=== PATIENT | female | born 1990 | race Two or more races ===

== ENCOUNTER 2016-05-20 09:52 | Inpatient (IN) | payer OTHER ==
[~2016-05-20] VITALS: Ht 153.7 cm; Wt 72.0 kg
[2016-05-20 10:55] VITALS: Ht 153.7 cm; Wt 72.0 kg
[2016-05-20 10:57] VITALS: BP 117/66; PULSE 71; RESP 18
[2016-05-20] MEDS ORDERED: ACETAMINOPHEN/CODEINE #3 TAB PO PRN (11:00)
[2016-05-20] MEDS ORDERED: LIDOCAINE 1% (MPF) 30 ML INJ INJ PRN (11:00)
[2016-05-20] MEDS ORDERED: CARBOPROST 250 MCG INJ IM PRN (11:00)
[2016-05-20] MEDS ORDERED: METHYLERGONOVINE 0.2 MG INJ IM PRN (11:00)
[2016-05-20] MEDS ORDERED: IBUPROFEN 600 MG TAB PO PRN (11:00)
[2016-05-20] MEDS ORDERED: LACTATED RINGER'S 1,000 ML IV PRN (11:00)
[2016-05-20] MEDS ORDERED: MISOPROSTOL 200 MCG TAB PR PRN (11:00)
[2016-05-20] MEDS ORDERED: OXYTOCIN 30 UNITS/LR 500 ML IV SCH ×3 (11:00)
[2016-05-20] MEDS ORDERED: OXYTOCIN 30 UNITS/LR 500 ML IV PRN (11:00)
[2016-05-20] MEDS ORDERED: BUTORPHANOL 2 MG INJ IV PRN ×2 (11:00)
[2016-05-20 11:02] LABS: ADD SCAN DIFF NO
[2016-05-20 11:07] LABS: BASOPHILS % 0.2 % (0.0-2.0); EOSINOPHILS # 0.1 10^3/ul (0.0-0.5); EOSINOPHILS % 0.4 % (0.0-7.0); HEMATOCRIT 34.1 % (37.0-47.0); HEMOGLOBIN 11.6 g/dl (12.0-16.0); LYMPHOCYTES # 1.1 10^3/ul (0.8-2.9); LYMPHOCYTES % 9.1 % (15.0-51.0); MEAN CORPUSCULAR HEMOGLOBIN 32.6 pg (29.0-33.0); MEAN CORPUSCULAR VOLUME 95.8 fl (82.0-101.0); MEAN PLATELET VOLUME 12.3 fl (7.4-10.4); MONOCYTE # 0.8 10^3/ul (0.3-0.9); MONOCYTES % 6.4 % (0.0-11.0); NEUTROPHIL # 9.7 10^3/ul (1.6-7.5); NEUTROPHILS % 83.2 % (39.0-77.0); PLATELET COUNT 196 10^3/UL (140-415); RED BLOOD COUNT 3.56 10^6/ul (4.20-5.40); RED CELL DISTRIBUTION WIDTH 12.8 % (11.5-14.5); WHITE BLOOD COUNT 11.7 10^3/ul (4.8-10.8)
[2016-05-20 11:24] LABS: INR 0.96; PROTIME 12.8 Sec (12.2-14.2)
[2016-05-20 11:25] LABS: PARTIAL THROMBOPLASTIN TIME 27.3 Sec (25.0-35.0)
--- NOTE | 2016-05-20 11:28 | RADRPT ---
PROCEDURE: US OB biophysical profile. CLINICAL INDICATION: evaluation, contractions TECHNIQUE: Multiple sonographic images of the pelvis were obtained. The images were reviewed on a PACS workstation. COMPARISON: No prior studies are available for comparison. FINDINGS: There is a single viable intrauterine gestation. Cardiac activity is present with 134 beats per min [place]. There is a vertex presentation. The placenta is bilobed anterior and posterior. There is no evidence of placental abruption. There is a normal amount of amniotic fluid with an SURYA = 14.1 cm. Biophysical profile: movement 2/2 tone 2/2. breathing 2/2 SURYA 2/2 Total 09/30 RPTAT: AA . IMPRESSION: Normal biophysical profile. Bilobed placenta. Normal SURYA. Physician Cristina Date Time Electronically viewed and signed by Physician Cristina on 05/20/2016 11:28 /
--- NOTE | 2016-05-20 11:30 | RADRPT ---
PROCEDURE: US OB CLINICAL INDICATION: CONTRACTIONS, estimated weight TECHNIQUE: Multiple sonographic images of the pelvis were obtained. The images were reviewed on a PACS workstation. COMPARISON: None FINDINGS: The cervix is not well visualized. There is a single viable intrauterine gestation. Cardiac activity is present with 134 beats per minute. There is a vertex presentation. The placenta is bilobed anterior and posterior. There is no evidence for an abruption or placenta pr evia. There is a normal amount of amniotic fluid with an SURYA = 14.1 cm. Measurements were made in order to determine age. The results are as follows (cm): BPD =8.87 HC =31.57 AC =34.53 FL =7.02 Estimated gestational age by ultrasound of approximately 36 weeks, 3 days. The estimated date of delivery by ultrasound is 06/14/2016. Estimated gestational age by LMP of approximately 39 weeks, 0 days. The estimated date of delivery by LMP is 05/27/2016. EFW = 3151 grams (25th percentile) IMPRESSION: Single viable intrauterine gestation of approximately 36 weeks, 3 days . The estimated date of delivery is 06/14/2016 . Dating by ultrasound is within 18 days of dating by LMP. Bilobed placenta. Normal SURYA. Estimated weight is in the 25th percentile. Cephalic presentation. RPTAT: EE Physician Cristina Date Time Electronically viewed and signed by Physician Cristina on 05/20/2016 11:30 /
[2016-05-20] MEDS: LACTATED RINGER'S 1,000 ML IV SCH (12:22)
[2016-05-20] MEDS ORDERED: PRENAT PO (15:25)
[2016-05-20] MEDS ORDERED: FOLI0.4T2 PO (15:26)
[2016-05-20] MEDS ORDERED: CALC600T11 PO (15:29)
[2016-05-20] MEDS ORDERED: FERR325C PO (15:29)
[2016-05-20] MEDS ORDERED: ONDANSETRON 4 MG INJ IV PRN (21:30)
[2016-05-20] MEDS ORDERED: DIPHENHYDRAMINE 50 MG INJ IV PRN (21:30)
[2016-05-20] MEDS ORDERED: HYDROmorphONE 1 MG/ML SYG IV PRN ×2 (21:30)
[2016-05-20] MEDS ORDERED: KETOROLAC 30 MG INJ IV PRN (21:30)
[2016-05-20] MEDS ORDERED: NALOXONE (0.4 MG/ML) INJ IV PRN (21:30)
[2016-05-21] MEDS: LACTATED RINGER'S 1,000 ML IV SCH ×2 (03:20→12:50)
[2016-05-21] MEDS: FENTAnyl 2MCG/ML-ROPIV 0.2% 100 ML BAG EPI SCH ×2 (07:27→14:38)
[2016-05-21] MEDS ORDERED: AMPICILLIN 2 GM/NS (PMX) 100 ML IVPB ONE (08:30)
[2016-05-21] MEDS ORDERED: AMPICILLIN 1 GM/NS (PMX) 50 ML IVPB SCH (09:00)
[2016-05-21 09:03] LABS: BARBITURATES Negative (NEGATIVE); BENZODIAZEPINES Negative (NEGATIVE); COCAINE Negative (NEGATIVE); OPIATES Negative (NEGATIVE)
[2016-05-21 09:17] LABS: CANNABINOIDS Negative (NEGATIVE)
[2016-05-21] MEDS ORDERED: ACETAMINOPHEN 325 MG TAB PO ONE (09:30)
[2016-05-21] MEDS: AMPICILLIN 1 GM/NS (PMX) 50 ML IVPB SCH ×3 (12:51→21:00)
--- NOTE | 2016-05-21 17:03 | HP ---
Date/Time of Note Date/Time of Note DATE: 05/21/16 TIME: 17:02 OB - History Hx of Present Free Text/Dictation @39+wks GA in early labor for augmentation of labor : 1 Para: 0 Care: Good Care Ultrasounds: Normal mid trimester US Obstetrical Complications: None Medical Complications: None Past Family/Social History * Past Medical, Surgical, Family and Obstetric Histories reviewed from chart. OB Admission Exam Vital Signs Vital Signs Vital Signs Date Time Temp Pulse Resp B/P Pulse Ox O2 Delivery O2 Flow Rate FiO2 05/20/16 10:57 99.1 71 18 117/66 Room Air Physical Exam Heart: Rhythm Normal Abdomen: WNL Extremities: Normal Cervical Dilatation: 2cm Effacement: 75% Station: -1 Membranes: Intact Heart Rate: 150's Accelerations: Accelerations Present Decelerations: No Decelerations Varibility: Moderate Contractions on Admission: < 5 Minutes Apart Last 72 hours Lab Results CBC & BMP 05/20/16 10:30 OB Assessment/Plan Reason for admission: observation Induction Method: per Pitocin Protocol CHRISTOPHER ALEXANDRA M.D. May 21, 2016 17:03
[2016-05-21] MEDS: CEFAZOLIN 2 GM/50 ML (PMX) 50 ML IVPB SCH (19:56)
[2016-05-21] MEDS ORDERED: ACETAMINOPHEN 325 MG TAB PO PRN (20:00)
[2016-05-21 22:00] VITALS: BP 112/75; PULSE 98; RESP 20
[2016-05-21] MEDS ORDERED: BENZOCAINE 20% 56 ML SPRAY TOP PRN (22:30)
[2016-05-21] MEDS ORDERED: WITCH HAZEL/GLYCERIN PAD PR PRN (22:30)
[2016-05-21] MEDS ORDERED: ZOLPIDEM 5 MG TAB PO PRN (22:30)
[2016-05-21] MEDS ORDERED: MISOPROSTOL 200 MCG TAB PR PRN (22:30)
[2016-05-21] MEDS ORDERED: CARBOPROST 250 MCG INJ IM PRN (22:30)
[2016-05-21] MEDS ORDERED: SENNA/DOCUSATE NA (8.6MG/50MG) TAB PO PRN (22:30)
[2016-05-21] MEDS ORDERED: OXYTOCIN 30 UNITS/LR 500 ML IV PRN (22:30)
[2016-05-21] MEDS ORDERED: METHYLERGONOVINE 0.2 MG INJ IM PRN (22:30)
[2016-05-21] MEDS ORDERED: LANOLIN 7 GM TUBE TOP PRN (22:30)
[2016-05-21] MEDS: LACTATED RINGER'S 1,000 ML IV* SCH (22:42)
[2016-05-21 23:50] VITALS: BP 103/60; PULSE 93; RESP 19
[2016-05-22 04:00] VITALS: BP 100/59; PULSE 89; RESP 19
[2016-05-22] MEDS: CEFAZOLIN 2 GM/50 ML (PMX) 50 ML IVPB SCH ×3 (04:00→22:46)
[2016-05-22] MEDS: IBUPROFEN 600 MG TAB PO SCH ×4 (05:25→17:34)
[2016-05-22] MEDS: LACTATED RINGER'S 1,000 ML IV* SCH ×3 (06:10→22:46)
[2016-05-22 08:06] LABS: ADD SCAN DIFF NO
[2016-05-22 08:07] LABS: ABNORMAL IP MESSAGE 1; HEMATOCRIT 25.5 % (37.0-47.0); HEMOGLOBIN 8.4 g/dl (12.0-16.0); MEAN CORPUSCULAR HEMOGLOBIN 31.9 pg (29.0-33.0); MEAN CORPUSCULAR HGB CONC 32.9 g/dl (32.0-37.0); PLATELET COUNT 156 10^3/UL (140-415); RED BLOOD COUNT 2.63 10^6/ul (4.20-5.40); RED CELL DISTRIBUTION WIDTH 13.2 % (11.5-14.5); WHITE BLOOD COUNT 26.9 10^3/ul (4.8-10.8)
[2016-05-22 09:00] VITALS: BP 94/52; PULSE 87; RESP 20
[2016-05-22] MEDS: MAGNESIUM HYDROXIDE 30ML CUP PO SCH ×2 (09:08→21:00)
[2016-05-22] MEDS: SENNA/DOCUSATE NA (8.6MG/50MG) TAB PO SCH ×2 (09:09→21:00)
[2016-05-22 09:36] LABS: EOSINOPHILS # 0.3 10^3/ul (0.0-0.5); LYMPHOCYTES # 1.3 10^3/ul (0.8-2.9); MONOCYTE # 1.3 10^3/ul (0.3-0.9); NEUTROPHIL # 19.9 10^3/ul (1.6-7.5)
[2016-05-22 12:04] VITALS: BP 86/45; PULSE 86; RESP 16
[2016-05-22] MEDS: OXYCODONE/ASPIRIN (4.88/325) TAB PO PRN ×2 (14:06→22:50)
[2016-05-22 16:00] VITALS: BP 82/55; PULSE 78; RESP 18
[2016-05-22 20:00] VITALS: BP 99/57; PULSE 85; RESP 19
--- NOTE | 2016-05-22 21:02 | QN ---
Documentation Comment PPD# 1 is stable afebrile tolerates diet No VB +BM +Voids VS stable Gen NAD Abd soft NT ND Genitalia No blood at perinium ---->discharge plan tomorrow CHRISTOPHER ALEXANDRA M.D. May 22, 2016 21:02
[2016-05-23 04:37] VITALS: BP 97/54; PULSE 83; RESP 19
[2016-05-23] MEDS: LACTATED RINGER'S 1,000 ML IV* SCH (06:10)
[2016-05-23] MEDS: IBUPROFEN 600 MG TAB PO SCH ×3 (06:56→11:56)
[2016-05-23] MEDS: CEFAZOLIN 2 GM/50 ML (PMX) 50 ML IVPB SCH (06:56)
[2016-05-23 08:00] VITALS: BP 98/48; PULSE 75; RESP 20
[2016-05-23] MEDS ORDERED: DIPHTH/TET/ACEL PERTUSS (ADULT) 0.5 ML VIAL IM* ONE (09:00)
[2016-05-23] MEDS: SENNA/DOCUSATE NA (8.6MG/50MG) TAB PO SCH (09:07)
[2016-05-23] MEDS: MAGNESIUM HYDROXIDE 30ML CUP PO SCH (09:07)
--- NOTE | 2016-05-23 12:20 | DS ---
Date/Time of Note Date/Time of Note DATE: 05/23/16 TIME: 12:19 Discharge Summary Admission/Discharge Info Admit Date/Time May 20, 2016 at 09:52 Discharge Date/Time 05/23/16 Final Diagnosis labor full term Patient Condition: Stable Procedures vaginal delivery Hospital Course uneventful Home Meds Discontinued Reported Medications Calcium Carbonate* (Calcium Carbonate*) 600 MG Ca Tab, 600 MG PO, TAB 05/20/16 Ferrous Sulfate (Iron) 325 Mg Capsule.er, 325 MG PO, CAP 05/20/16 Folic Acid* (Folic Acid*) 0.4 Mg Tablet, 0.4 MG PO DAILY, TAB 05/20/16 Multivit/Min/Fol Ac/Iron/Pren* ( S*) 1 Tab Tab, 1 TAB PO DAILY, TAB 05/20/16 CHRISTOPHER ALEXANDRA M.D. May 23, 2016 12:20
--- NOTE | 2016-06-11 23:48 | LDN ---
Date/Time of Note Date/Time of Note DATE: 06/11/16 TIME: 23:47 Delivery Summary Weeks of Gestation 39 weeks Placenta Delivered: Spontaneously Anesthesia type: Epidural Estimated blood loss: 200 Sponge & Needle done & correct: Yes All needle counts correct: Yes Any foreign bodies felt in the: No Problems: Infant Delivery Information Suctioning Nose & mouth suctioned at jo ann: Yes Delee suction performed: Yes Umbilical Cord Umbilical cord with: 3 Vessels Cord presentations: no nuchal cord Cord Blood was obtained: Yes Mother & Baby Disposition Disposition Mom & Baby to Maternity; Good: Yes Baby to NICU: No CHRISTOPHER ALEXANDRA M.D. Jun 11, 2016 23:48
== END 2016-05-23 13:40 | disposition home or self-care (01) | DRG 775 ==
LOC: L-D 09:52 → PP1 05-21 21:39
PROVIDERS: ADMIT Obstetrics & Gynecology; ATTEND Obstetrics & Gynecology
PROC: 10E0XZZ Delivery of Products of Conception, External Approach (ICD-10-PCS; principal; 2016-05-20)
DX: O80 Encounter for full-term uncomplicated delivery (principal); Z37.0 Single live birth; Z3A.39 39 weeks gestation of pregnancy
CPT/HCPCS: 62319; 76815; 76818; 80307; 85025; 85610; 85730; 86592; 86900; 86901; 87340; 88307; 90715; 99464; J0290; J0690; J1885; J2210; J2590; J3010; J7120